=== PATIENT | male | born 1945 | race Hispanic/Latino ===

== ENCOUNTER 2018-01-19 13:07 | Inpatient (IN) | payer OTHER ==
[2018-01-19 14:13] LABS: Basophils # (Auto) 0.1 K/mm3 (0.0-0.1); Eosinophils # (Auto) 0.9 K/mm3 (0.0-0.4); Eosinophils % (Auto) 9.4 % (0.0-4.3); Hematocrit 41.8 % (35.5-45.6); Lymphocytes # (Auto) 1.8 K/mm3 (1.2-5.4); Lymphocytes % (Auto) 19.6 % (13.4-35.0); Mean Corpuscular HGB Conc 34 % (32-34); Mean Corpuscular Hemoglobin 28 pg (28-32); Mean Corpuscular Volume 85 fl (84-94); Monocytes # (Auto) 0.9 K/mm3 (0.0-0.8); Monocytes % (Auto) 10.1 % (0.0-7.3); Platelet Count 211 K/mm3 (140-440); Red Blood Count 4.92 M/mm3 (3.65-5.03); Red Cell Distribution Width 14.3 % (13.2-15.2)
[2018-01-19 14:23] LABS: INR 0.84 (0.87-1.13)
[2018-01-19 14:24] LABS: Partial Thromboplastin Time 31.9 Sec. (24.2-36.6)
[2018-01-19 14:28] LABS: Creatine Kinase MB 3.8 ng/mL (0.0-4.0)
[2018-01-19] MEDS ORDERED: NACL 0.9% 1000 ML 1,000 ML ONE (14:29)
[2018-01-19 14:30] LABS: Albumin 3.9 g/dL (3.9-5); Calcium 8.2 mg/dL (8.4-10.2)
[2018-01-19] MEDS ORDERED: NACL 0.9% 1000 ML 1,000 ML IV ONE (14:38)
--- NOTE | 2018-01-19 14:46 | XRay Report ---
AP CHEST: HISTORY: Tachycardia AP view of the chest demonstrates a normal mediastinal and cardiac contour with clear lungs and normal bony and soft tissue structures. IMPRESSION: Unremarkable AP chest.
--- NOTE | 2018-01-19 15:41 | Cat Scan Report ---
CT HEAD WITHOUT CONTRAST: HISTORY: Dizziness, recent stroke. TECHNIQUE: Sequential CT images without contrast. FINDINGS: Images obtained show bilateral prominence of the sulci and ventricles. There are no abnormal intra- or extra-axial blood or fluid collections. There are no focal masses or evidence of mass effect. The hodges white matter differentiation appears within normal limits. Regions of periventricular decreased attenuation are consistent with microangiopathic ischemic disease. 8mm chronic lacunar infarct is noted in the superior left basal ganglia. The posterior fossa structures including the fourth ventricle, cerebellum, and brainstem appear normal. IMPRESSION: Evidence of atrophy and microangiopathic ischemic disease. Chronic lacunar infarct in the superior left basal ganglia. No acute intracranial process noted.
--- NOTE | 2018-01-19 16:25 | Consultation ---
History of Present Illness Consult date: 01/19/18 Requesting physician: JOANNE RIVERA Consult reason: tachycardia History of present illness: The pt is a 72 YO male with a past medical history significant for CAD s/p PCI x 4 per pt report, AMI, HTN, HLP, DM, CVA in 07/2017, former tobacco use, former ETOH use. He is followed by the [facility]. He is previously unknown to our practice. Pt presented from cardiac rehab with c/o dizziness, palpitations, high HR and low BPs. Pt reports that he was walking on the treadmill at cardiac rehab when he noted the onset of his symptoms. He reports that he nearly fell off the treadmill because he was so dizzy. His HR was noted to be persistently elevated and BPs were noted to be low and thus he was referred to ED for further eval/management. Following arrival, 12-lead ECG showed apparent SVT with HR in 140s, BPs 90s/60s. Pt was given 6mg IV adenosine and converted to SR with HR in 80s. Pt denies any chest pain, SOB, n/v, diaphoresis or syncope. Pt does admit to some left hand and left arm tingling since the onset of his palpitations. Pt reports one additional episode of tachycardia last week at cardiac rehab when he was told his HR reached 180. 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 Echo done 07/2014 showed EF 50-55%, mild TR. Past History Past Medical History: acute [place], CAD, diabetes, hypertension, hyperlipidemia Social history: smoking (former), alcohol abuse (former) Medications and Allergies Allergies Allergy/AdvReac Type Severity Reaction Status Date / Time No Known Allergies Allergy Unverified 09/01/17 12:29 Home Medications Medication Instructions Recorded Confirmed Last Taken Type Aspirin [Aspirin EC] 81 mg PO DAILY 01/19/18 01/19/18 Unknown History Atorvastatin Calcium [Lipitor] 80 mg PO DAILY 01/19/18 01/19/18 Unknown History Carvedilol [Coreg] 6.25 mg PO BID 01/19/18 01/19/18 Unknown History Clopidogrel [Plavix] 75 mg PO QDAY 01/19/18 01/19/18 Unknown History Famotidine [Pepcid] 20 mg PO BID 01/19/18 01/19/18 Unknown History ISOSORBIDE MONOnitrate [Imdur ER] 60 mg PO QDAY 01/19/18 01/19/18 Unknown History Insulin Glargine [Lantus] 38 unit SUB-Q QHS 01/19/18 01/19/18 Unknown History Lisinopril [Zestril TAB] 40 mg PO QDAY 01/19/18 01/19/18 Unknown History Metformin HCl [Metformin HCl ER] 2,000 mg PO DAILY 01/19/18 01/19/18 Unknown History Quetiapine Fumarate [QUEtiapine 300 mg PO QDAY 01/19/18 01/19/18 Unknown History Fumarate] Ranitidine HCl [Zantac 150 MG TAB] 150 mg PO DAILY 01/19/18 01/19/18 Unknown History Saxagliptin HCl [Onglyza] 5 mg PO DAILY 01/19/18 01/19/18 Unknown History Spironolactone [Aldactone] 12.5 mg PO QDAY 01/19/18 01/19/18 Unknown History amLODIPine [Norvasc] 10 mg PO DAILY 01/19/18 01/19/18 Unknown History Review of Systems Constitutional: no weight loss, no weight gain, no fever, no chills, no sweats Ears, nose, mouth and throat: no ear pain, no nose pain, no sinus pressure, no sinus pain Cardiovascular: palpitations, rapid/irregular heart beat, lightheadedness, no chest pain, no orthopnea, no edema, no syncope, no shortness of breath, no dyspnea on exertion, no leg edema Respiratory: no cough, no shortness of breath, no dyspnea on exertion, no congestion, no wheezing, no pain on inspiration Gastrointestinal: no abdominal pain, no nausea, no vomiting, no diarrhea, no constipation, no change in bowel habits Genitourinary Male: no dysuria, no hematuria, no flank pain, no discharge, no urinary frequency, no urinary hesitancy Musculoskeletal: no neck stiffness, no neck pain, no low back pain, no shooting leg pain, no leg numbness/tingling, no redness of joints Integumentary: no rash, no pruritis, no redness, no sores, no wounds Neurological: no head injury, no paralysis, no weakness, no parathesias, no numbness, no tingling, no seizures, no syncope Psychiatric: no anxiety Endocrine: no cold intolerance, no heat intolerance Hematologic/Lymphatic: no easy bruising, no easy bleeding Allergic/Immunologic: no urticaria, no wheezing Physical Examination Vital Signs Temp Pulse Resp BP Pulse Ox 97.5 F L 144 H 22 99/62 96 01/19/18 13:32 01/19/18 13:32 01/19/18 13:32 01/19/18 13:32 01/19/18 13:32 General appearance: no acute distress HEENT: Positive: PERRL, Normocephaly, Mucus Membranes Moist Neck: Positive: neck supple, trachea midline Cardiac: Positive: S1/S2, Tachycardia Lungs: Positive: clear to auscultation Neuro: Positive: Grossly Intact Abdomen: Positive: Soft. Negative: Tender Skin: Positive: Clear. Negative: Rash, Wound Musculoskeletal: No Fluid Collection, No Pain, Normal Range of Motion Extremities: Absent: edema Results 01/19/18 13:41 01/19/18 13:41 Cardiac Enzymes 01/19/18 01/19/18 Range/Units 13:41 13:41 AST 23 (5-40) units/L CK-MB (CK-2) 3.8 (0.0-4.0) ng/mL Coagulation 01/19/18 Range/Units 13:41 PT 11.9 L (12.2-14.9) Sec. INR 0.84 L (0.87-1.13) APTT 31.9 (24.2-36.6) Sec. CBC 01/19/18 Range/Units 13:41 WBC 9.2 (4.5-11.0) K/mm3 RBC 4.92 (3.65-5.03) M/mm3 Hgb 14.0 (11.8-15.2) gm/dl Hct 41.8 (35.5-45.6) % Plt Count 211 (140-440) K/mm3 Lymph # 1.8 (1.2-5.4) K/mm3 [place] # 0.9 H (0.0-0.8) K/mm3 Eos # 0.9 H (0.0-0.4) K/mm3 Baso # 0.1 (0.0-0.1) K/mm3 Comprehensive Metabolic Panel 01/19/18 Range/Units 13:41 Sodium 135 L (137-145) mmol/L Potassium 4.2 (3.6-5.0) mmol/L Chloride 96.8 L (98-107) mmol/L Carbon Dioxide 23 (22-30) mmol/L BUN 12 (9-20) mg/dL Creatinine 1.2 (0.8-1.5) mg/dL Glucose 306 H (75-100) mg/dL Calcium 8.2 L (8.4-10.2) mg/dL AST 23 (5-40) units/L ALT 27 (7-56) units/L Alkaline Phosphatase 100 (35-129) units/L Total Protein 6.6 (6.3-8.2) g/dL Albumin 3.9 (3.9-5) g/dL - Imaging and Cardiology Echo: pending, report reviewed (07/2014 showed EF 50-55%, mild TR. ) EKG: report reviewed, image reviewed EKG interpretations - Telemetry EKG Rhythm: Sinus Rhythm Additional Comments: SVT Assessment and Plan Assessment: Transient SVT --> SR with 6mg IV adenosine CAD s/p PCI x 4 per pt report H/o HTN HLP DM H/o CVA 07/2017 per pt report Plan: Admit to telemetry per hospitalists. Resume home cardiac regimen. Will convert home coreg to lopressor for more adequate HR control. Obtain echo. Obtain serum Mg and thyroid profile. [facility] Assessment and plan reviewed with pt at bedside. The patient has been seen in conjunction with Dr. Michael who agrees with the assessment and plan of care.
--- NOTE | 2018-01-19 19:18 | Emergency Department Report ---
ED Dizziness HPI - General Chief Complaint: Dizziness Stated Complaint: TACHYCARDIA/DIZZINESS Time Seen by Provider: 01/19/18 14:23 Source: patient Mode of arrival: Ambulatory Limitations: No Limitations - History of Present Illness Initial Comments: 72-year-old male with past medical history of hypertension coronary artery disease high cholesterol was brought in for dizziness and tachycardia. Patient states he's been feeling dizzy and had elevated heart rate and was brought in for further evaluation and treatment patient is currently in no distress. Patient denies any nausea vomiting chest pain shortness of breath MD Complaint: dizziness -: Gradual Timing: gradual onset Description: "room spinning" History of Same: No History of Trauma: No Severity: mild Improves With: nothing Worsens With: nothing Associated Symptoms: denies other symptoms - Related Data Home Medications Medication Instructions Recorded Confirmed Last Taken Aspirin [Aspirin EC] 81 mg PO DAILY 01/19/18 01/19/18 Unknown Atorvastatin Calcium [Lipitor] 80 mg PO DAILY 01/19/18 01/19/18 Unknown Carvedilol [Coreg] 6.25 mg PO BID 01/19/18 01/19/18 Unknown Clopidogrel [Plavix] 75 mg PO QDAY 01/19/18 01/19/18 Unknown Famotidine [Pepcid] 20 mg PO BID 01/19/18 01/19/18 Unknown ISOSORBIDE MONOnitrate [Imdur ER] 60 mg PO QDAY 01/19/18 01/19/18 Unknown Insulin Glargine [Lantus] 38 unit SUB-Q QHS 01/19/18 01/19/18 Unknown Lisinopril [Zestril TAB] 40 mg PO QDAY 01/19/18 01/19/18 Unknown Metformin HCl [Metformin HCl ER] 2,000 mg PO DAILY 01/19/18 01/19/18 Unknown Quetiapine Fumarate [QUEtiapine 300 mg PO QDAY 01/19/18 01/19/18 Unknown Fumarate] Ranitidine HCl [Zantac 150 MG TAB] 150 mg PO DAILY 01/19/18 01/19/18 Unknown Saxagliptin HCl [Onglyza] 5 mg PO DAILY 01/19/18 01/19/18 Unknown Spironolactone [Aldactone] 12.5 mg PO QDAY 01/19/18 01/19/18 Unknown amLODIPine [Norvasc] 10 mg PO DAILY 01/19/18 01/19/18 Unknown Allergies Allergy/AdvReac Type Severity Reaction Status Date / Time No Known Allergies Allergy Unverified 09/01/17 12:29 ED Review of Systems ROS: Stated complaint: TACHYCARDIA/DIZZINESS Other details as noted in HPI Constitutional: denies: chills, fever Eyes: denies: eye pain, eye discharge, vision change ENT: denies: ear pain, throat pain Respiratory: denies: cough, shortness of breath, wheezing Cardiovascular: palpitations. denies: chest pain Endocrine: no symptoms reported Gastrointestinal: denies: abdominal pain, nausea, diarrhea Genitourinary: denies: urgency, dysuria Musculoskeletal: denies: back pain, joint swelling, arthralgia Skin: denies: rash, lesions Neurological: denies: headache, weakness, paresthesias Psychiatric: denies: anxiety, depression Hematological/Lymphatic: denies: easy bleeding, easy bruising ED Past Medical Hx - Past Medical History Hx Hypertension: Yes Hx CVA: Yes (affected speech) Hx Heart Attack/AMI: Yes Hx Diabetes: Yes - Surgical History Additional Surgical History: stents x4 - Social History Smoking Status: Former Smoker Substance Use Type: None - Medications Home Medications: Home Medications Medication Instructions Recorded Confirmed Last Taken Type Aspirin [Aspirin EC] 81 mg PO DAILY 01/19/18 01/19/18 Unknown History Atorvastatin Calcium [Lipitor] 80 mg PO DAILY 01/19/18 01/19/18 Unknown History Carvedilol [Coreg] 6.25 mg PO BID 01/19/18 01/19/18 Unknown History Clopidogrel [Plavix] 75 mg PO QDAY 01/19/18 01/19/18 Unknown History Famotidine [Pepcid] 20 mg PO BID 01/19/18 01/19/18 Unknown History ISOSORBIDE MONOnitrate [Imdur ER] 60 mg PO QDAY 01/19/18 01/19/18 Unknown History Insulin Glargine [Lantus] 38 unit SUB-Q QHS 01/19/18 01/19/18 Unknown History Lisinopril [Zestril TAB] 40 mg PO QDAY 01/19/18 01/19/18 Unknown History Metformin HCl [Metformin HCl ER] 2,000 mg PO DAILY 01/19/18 01/19/18 Unknown History Quetiapine Fumarate [QUEtiapine 300 mg PO QDAY 01/19/18 01/19/18 Unknown History Fumarate] Ranitidine HCl [Zantac 150 MG TAB] 150 mg PO DAILY 01/19/18 01/19/18 Unknown History Saxagliptin HCl [Onglyza] 5 mg PO DAILY 01/19/18 01/19/18 Unknown History Spironolactone [Aldactone] 12.5 mg PO QDAY 01/19/18 01/19/18 Unknown History amLODIPine [Norvasc] 10 mg PO DAILY 01/19/18 01/19/18 Unknown History ED Physical Exam - General Limitations: No Limitations General appearance: alert, in no apparent distress - Head Head exam: Present: atraumatic, normocephalic - Eye Eye exam: Present: normal appearance - ENT ENT exam: Present: mucous membranes moist - Neck Neck exam: Present: normal inspection - Respiratory Respiratory exam: Present: normal lung sounds bilaterally. Absent: respiratory distress - Cardiovascular Cardiovascular Exam: Present: regular rate, normal rhythm. Absent: systolic murmur, diastolic murmur, rubs, gallop - GI/Abdominal GI/Abdominal exam: Present: soft, normal bowel sounds - Rectal Rectal exam: Present: deferred - Extremities Exam Extremities exam: Present: normal inspection - Back Exam Back exam: Present: normal inspection - Neurological Exam Neurological exam: Present: alert, oriented X3 - Psychiatric Psychiatric exam: Present: normal affect, normal mood - Skin Skin exam: Present: warm, dry, intact, normal color. Absent: rash ED Course Vital Signs 01/19/18 13:32 Temperature 97.5 F L Pulse Rate 144 H Respiratory 22 Rate Blood Pressure 99/62 O2 Sat by Pulse 96 Oximetry ED Medical Decision Making - Lab Data Result diagrams: 01/19/18 13:41 01/19/18 13:41 - Medical Decision Making 72-year-old male with past medical history of hypertension, HLD, CAD came in with dizziness and tachycardia. At the time of arrival pt was given some fluids and then cardiology was consulted and pt was converted with adenosine 6mg. patient is currently in no acute distress. He denies any nausea vomiting chest pain shortness of breath. He denies any fever or chills. pt will be admitted to hospitalist for further evaluation, treatment Critical care attestation.: If time is entered above; I have spent that time in minutes in the direct care of this critically ill patient, excluding procedure time. ED Disposition Clinical Impression: Tachycardia, Dizziness, SVT (supraventricular tachycardia) Disposition: [id number] OP ADMIT IP TO THIS HOSP Is pt being admited?: Yes Does the pt Need Aspirin: No
[2018-01-19] MEDS ORDERED: NON-FORMULARY (Atorvastatin Calcium [Lipitor] 80 MG) PO SCH (20:45)
--- NOTE | 2018-01-19 20:45 | History and Physical Report ---
History of Present Illness Date of examination: 01/19/18 Date of admission: 01/19/18 15:39 Chief complaint: See dictated H/p in reports History of present illness: See dictated H/p in reports Past History Past Medical History: acute [place], CAD, diabetes, hypertension, hyperlipidemia Social history: smoking (former), alcohol abuse (former) Medications and Allergies Allergies Allergy/AdvReac Type Severity Reaction Status Date / Time No Known Allergies Allergy Unverified 09/01/17 12:29 Home Medications Medication Instructions Recorded Confirmed Last Taken Type Aspirin [Aspirin EC] 81 mg PO DAILY 01/19/18 01/19/18 Unknown History Atorvastatin Calcium [Lipitor] 80 mg PO DAILY 01/19/18 01/19/18 Unknown History Carvedilol [Coreg] 6.25 mg PO BID 01/19/18 01/19/18 Unknown History Clopidogrel [Plavix] 75 mg PO QDAY 01/19/18 01/19/18 Unknown History Famotidine [Pepcid] 20 mg PO BID 01/19/18 01/19/18 Unknown History ISOSORBIDE MONOnitrate [Imdur ER] 60 mg PO QDAY 01/19/18 01/19/18 Unknown History Insulin Glargine [Lantus] 38 unit SUB-Q QHS 01/19/18 01/19/18 Unknown History Lisinopril [Zestril TAB] 40 mg PO QDAY 01/19/18 01/19/18 Unknown History Metformin HCl [Metformin HCl ER] 2,000 mg PO DAILY 01/19/18 01/19/18 Unknown History Quetiapine Fumarate [QUEtiapine 300 mg PO QDAY 01/19/18 01/19/18 Unknown History Fumarate] Ranitidine HCl [Zantac 150 MG TAB] 150 mg PO DAILY 01/19/18 01/19/18 Unknown History Saxagliptin HCl [Onglyza] 5 mg PO DAILY 01/19/18 01/19/18 Unknown History Spironolactone [Aldactone] 12.5 mg PO QDAY 01/19/18 01/19/18 Unknown History amLODIPine [Norvasc] 10 mg PO DAILY 01/19/18 01/19/18 Unknown History Active Meds: Active Medications Aspirin (Halfprin Ec) 81 mg PO DAILY ANT Atorvastatin Calcium (Lipitor) 80 mg PO QHS ANT Clopidogrel Bisulfate (Plavix) 75 mg PO QDAY [facility] Isosorbide Mononitrate (Imdur) 60 mg PO QDAY [facility] Lisinopril (Zestril) 40 mg PO QDAY [facility] Metoprolol Tartrate (Lopressor) 25 mg PO BID [facility] Exam - Constitutional Vitals: Temp Pulse Resp BP Pulse Ox 97.5 F L 72 12 114/49 97 01/19/18 13:32 01/19/18 19:30 01/19/18 19:30 01/19/18 19:30 01/19/18 19:30 Results - Labs CBC & Chem 7: 01/19/18 13:41 01/19/18 13:41 Labs: Laboratory Last Values WBC 9.2 K/mm3 (4.5-11.0) 01/19/18 13:41 RBC 4.92 M/mm3 (3.65-5.03) 01/19/18 13:41 Hgb 14.0 gm/dl (11.8-15.2) 01/19/18 13:41 Hct 41.8 % (35.5-45.6) 01/19/18 13:41 MCV 85 fl (84-94) 01/19/18 13:41 MCH 28 pg (28-32) 01/19/18 13:41 MCHC 34 % (32-34) 01/19/18 13:41 RDW 14.3 % (13.2-15.2) 01/19/18 13:41 Plt Count 211 K/mm3 (140-440) 01/19/18 13:41 Lymph % (Auto) 19.6 % (13.4-35.0) 01/19/18 13:41 [place] % (Auto) 10.1 % (0.0-7.3) H 01/19/18 13:41 Eos % (Auto) 9.4 % (0.0-4.3) H 01/19/18 13:41 Baso % (Auto) 1.0 % (0.0-1.8) 01/19/18 13:41 Lymph # 1.8 K/mm3 (1.2-5.4) 01/19/18 13:41 [place] # 0.9 K/mm3 (0.0-0.8) H 01/19/18 13:41 Eos # 0.9 K/mm3 (0.0-0.4) H 01/19/18 13:41 Baso # 0.1 K/mm3 (0.0-0.1) 01/19/18 13:41 Seg Neutrophils % 59.9 % (40.0-70.0) 01/19/18 13:41 Seg Neutrophils # 5.5 K/mm3 (1.8-7.7) 01/19/18 13:41 PT 11.9 Sec. (12.2-14.9) L 01/19/18 13:41 INR 0.84 (0.87-1.13) L 01/19/18 13:41 APTT 31.9 Sec. (24.2-36.6) 01/19/18 13:41 Sodium 135 mmol/L (137-145) L 01/19/18 13:41 Potassium 4.2 mmol/L (3.6-5.0) 01/19/18 13:41 Chloride 96.8 mmol/L (98-107) L 01/19/18 13:41 Carbon Dioxide 23 mmol/L (22-30) 01/19/18 13:41 Anion Gap 19 mmol/L 01/19/18 13:41 BUN 12 mg/dL (9-20) 01/19/18 13:41 Creatinine 1.2 mg/dL (0.8-1.5) 01/19/18 13:41 Estimated GFR 60 ml/min 01/19/18 13:41 BUN/Creatinine Ratio 10 % 01/19/18 13:41 Glucose 306 mg/dL (75-100) H 01/19/18 13:41 Lactic Acid 2.00 mmol/L (0.7-2.0) 01/19/18 14:32 Calcium 8.2 mg/dL (8.4-10.2) L 01/19/18 13:41 Magnesium 1.50 mg/dL (1.7-2.3) L 01/19/18 16:38 Total Bilirubin 0.30 mg/dL (0.1-1.2) 01/19/18 13:41 AST 23 units/L (5-40) 01/19/18 13:41 ALT 27 units/L (7-56) 01/19/18 13:41 Alkaline Phosphatase 100 units/L (35-129) 01/19/18 13:41 Total Creatine Kinase 127 units/L (55-170) 01/19/18 13:41 CK-MB (CK-2) 3.8 ng/mL (0.0-4.0) 01/19/18 13:41 CK-MB (CK-2) Rel Index 2.9 (0-4) 01/19/18 13:41 Troponin T < 0.010 ng/mL (0.00-0.029) 01/19/18 13:41 Total Protein 6.6 g/dL (6.3-8.2) 01/19/18 13:41 Albumin 3.9 g/dL (3.9-5) 01/19/18 13:41 Albumin/Globulin Ratio 1.4 % 01/19/18 13:41 TSH 1.020 mlU/mL (0.270-4.200) 01/19/18 16:38 Free T4 0.64 ng/dL (0.76-1.46) L 01/19/18 16:38
[2018-01-19] MEDS ORDERED: MORPHINE IV PRN (20:47)
[2018-01-19] MEDS ORDERED: ZOFRAN IV PRN (20:47)
[2018-01-19] MEDS ORDERED: SODIUM CHLORIDE FLUSH SYRINGE 10 ML IV PRN (20:47)
[2018-01-19] MEDS ORDERED: TYLENOL PO PRN (20:47)
[2018-01-19] MEDS ORDERED: PERCOCET 5/325 PO PRN (20:47)
[2018-01-19] MEDS ORDERED: NON-FORMULARY (Saxagliptin Hcl [Onglyza] 5 MG) PO SCH (21:00)
[2018-01-19] MEDS ORDERED: NON-FORMULARY (Ranitidine Hcl [Zantac 150 Mg Tab] 150 MG) PO SCH (21:00)
[2018-01-19] MEDS ORDERED: NACL 0.9% 1000 ML 1,000 ML IV SCH (21:00)
[2018-01-19] MEDS ORDERED: NON-FORMULARY (Quetiapine Fumarate [Quetiapine Fumarate] 300 MG) PO SCH (21:00)
[2018-01-19] MEDS: NORVASC PO SCH (21:22)
[2018-01-19] MEDS ORDERED: PEPCID PO SCH ×2 (22:00)
[2018-01-19] MEDS: PEPCID PO SCH (22:00)
[2018-01-19] MEDS: COREG PO SCH (22:00)
[2018-01-19] MEDS: LOPRESSOR PO SCH (22:00)
[2018-01-19] MEDS ORDERED: LANTUS SUB-Q SCH (22:00)
[2018-01-19] MEDS: SODIUM CHLORIDE FLUSH SYRINGE 10 ML IV SCH (23:30)
[2018-01-20 07:40] LABS: Basophils # (Auto) 0.1 K/mm3 (0.0-0.1); Eosinophils # (Auto) 0.8 K/mm3 (0.0-0.4); Eosinophils % (Auto) 11.7 % (0.0-4.3); Hematocrit 40.1 % (35.5-45.6); Hemoglobin 13.5 gm/dl (11.8-15.2); Lymphocytes # (Auto) 2.1 K/mm3 (1.2-5.4); Lymphocytes % (Auto) 29.2 % (13.4-35.0); Mean Corpuscular HGB Conc 34 % (32-34); Mean Corpuscular Hemoglobin 28 pg (28-32); Mean Corpuscular Volume 84 fl (84-94); Monocytes # (Auto) 0.8 K/mm3 (0.0-0.8); Monocytes % (Auto) 11.5 % (0.0-7.3); Platelet Count 182 K/mm3 (140-440); Red Blood Count 4.75 M/mm3 (3.65-5.03); Red Cell Distribution Width 14.1 % (13.2-15.2)
[2018-01-20 08:08] LABS: Alanine Aminotransferase 25 units/L (7-56); Albumin 3.5 g/dL (3.9-5); BUN/Creatinine Ratio 11; Blood Urea Nitrogen 12 mg/dL (9-20); Calcium 8.4 mg/dL (8.4-10.2); Hemolysis Index 4
--- NOTE | 2018-01-20 08:13 | History and Physical Report ---
CHIEF COMPLAINT: Palpitations. HISTORY OF PRESENT ILLNESS: The patient is a 72-year-old male with past medical history significant for hypertension, coronary artery disease, cerebrovascular accident in 07/2017, who comes in for dizziness and palpitation and high heart rate and low blood pressure. The patient states that he was walking on treadmill at cardiac rehab when he noted onset of his symptoms. Apparently, he nearly fell off the treadmill because he was so dizzy. His heart rate and blood pressure were abnormal, heart rate was very fast and low blood pressure. He was sent to the ER for further evaluation. The patient had supraventricular tachycardia while in the ER . The patient also has a left arm tingling. No chest pain. No syncope. Presyncopal episode. PAST MEDICAL HISTORY: Significant for hypertension, coronary artery disease, insulin-dependent diabetes, bipolar/schizophrenia, gastroesophageal reflux disease. CURRENT MEDICATIONS: Lipitor 80 mg once a day, Coreg 6.25 b.i.d., Plavix 75 once a day, famotidine 20 mg twice a day, isosorbide mononitrate 60 mg once a day, Lantus 38 units at bedtime, lisinopril 40 mg p.o. daily, metformin 2000 mg p.o. daily, ranitidine 150 p.o. daily. PAST SURGICAL HISTORY: Stents x 4. SOCIAL HISTORY: Former smoker. FAMILY HISTORY: Significant for hypertension. REVIEW OF SYSTEMS: As mentioned in history of present illness: The patient had a near-syncopal episode and dizziness, lightheadedness and palpitations and low blood pressure. Otherwise, review of systems is essentially negative. Also, left arm tingling sensation. PHYSICAL EXAMINATION: GENERAL: Elderly male, cooperative during examination. VITAL SIGNS: Blood pressure was 124/62, temperature 98.3, pulse 71, respirations 18, sats 93%. HEENT: Unremarkable. Pupils equal and reactive. NECK: Supple, no lymphadenopathy, no thyromegaly. LUNGS: Clear to auscultation and percussion. Good air entry. CARDIOVASCULAR: S1, S2 heard. No gallop, no murmur, no rub. Apical impulse in left fifth intercostal space and midclavicular line. ABDOMEN: Soft and benign. No hepatosplenomegaly. No guarding, no rigidity. Hernial orifice normal. EXTREMITIES: Good pedal pulses. No pedal edema. SKIN: Normal. CENTRAL NERVOUS SYSTEM: Alert and oriented x 4, nonfocal exam. LABORATORY DATA: Significant for a normal CBC. Protime is 11.9. Electrolytes: Sodium is slightly low at 135, glucose is 306, BUN and creatinine 12 and 1.2, calcium is slightly low at 8.2. TSH is 1.020. Free T4 slightly low at 0.64. EKG shows SVT, converted to sinus rhythm with adenosine. EMERGENCY ROOM COURSE: The patient was given adenosine 6 mg and the patient converted to sinus rhythm. ASSESSMENT AND PLAN: 1. Supraventricular tachycardia, resolved with adenosine. Continue to monitor the patient on telemetry. 2. Hypertension. Continue Coreg and lisinopril. 3. Insulin-dependent diabetes. Continue insulin and metformin and Onglyza. 4. Hyperlipidemia. Continue atorvastatin 80 mg once a day. 5. Gastroesophageal reflux disease. Continue Zantac or Pepcid. 6. Coronary artery disease. Continue Plavix. 7. Deep venous thrombosis prophylaxis, heparin 5000 q.12h. In summary, the patient with supraventricular tachycardia, which has resolved. The patient has coronary artery disease, insulin-dependent diabetes. The patient to get echocardiogram for further evaluation. Maybe Lexiscan. We will defer to Cardiology. Cardiology on board. JOB# [id number] LETY/NTS
[2018-01-20] MEDS ORDERED: MAGNESIUM SULFATE 3 GM in NACL 0.9% 100 ML IV ONE (09:00)
[2018-01-20] MEDS ORDERED: ALDACTONE PO SCH (10:00)
[2018-01-20] MEDS ORDERED: TRADJENTA PO SCH (10:00)
[2018-01-20] MEDS ORDERED: PLAVIX PO SCH (10:00)
[2018-01-20] MEDS ORDERED: IMDUR PO SCH (10:00)
[2018-01-20] MEDS ORDERED: HALFPRIN EC PO SCH (10:00)
[2018-01-20] MEDS ORDERED: ZESTRIL PO SCH (10:00)
[2018-01-20 10:16] VITALS: BP 143/77
[2018-01-20] MEDS: COREG PO SCH (11:35)
[2018-01-20] MEDS: NORVASC PO SCH (11:36)
[2018-01-20] MEDS: PEPCID PO SCH (11:38)
[2018-01-20] MEDS: LOPRESSOR PO SCH (11:52)
[2018-01-20] MEDS: SODIUM CHLORIDE FLUSH SYRINGE 10 ML IV SCH (11:57)
[2018-01-20] MEDS ORDERED: PNEUMOVAX 23 IM ONE (12:00)
[2018-01-20] MEDS ORDERED: Fluarix Quad 2017-2018(36 MOS+ IM ONE (12:00)
--- NOTE | 2018-01-20 12:06 | Progress Note ---
Assessment and Plan Assessment: Transient SVT --> SR with 6mg IV adenosine CAD s/p PCI x 4 per pt report H/o HTN HLP DM Hypomag H/o CVA 07/2017 per pt report Plan: No arrhythmias noted overnight. Cont present cardiac regimen. Replete Mg. Await echo. Assessment and plan reviewed with pt at bedside. The patient has been seen in conjunction with Dr. Michael who agrees with the assessment and plan of care. Subjective Date of service: 01/20/18 Principal diagnosis: SVT Interval history: pt resting comfortably in bed, no current complaints. Tele reviewed - no arrhythmias noted overnight. Objective Last Vital Signs Temp 97.3 F L 01/20/18 08:54 Pulse 67 01/20/18 11:55 Resp 16 01/20/18 08:54 BP 143/77 01/20/18 11:55 Pulse Ox 96 01/20/18 08:54 - Physical Examination HEENT: Positive: PERRL, Normocephaly, Mucus Membranes Moist Neck: Positive: neck supple, trachea midline Cardiac: Positive: Reg Rate and Rhythm, S1/S2 Lungs: Positive: clear to auscultation Neuro: Positive: Grossly Intact Abdomen: Positive: Soft. Negative: Tender Skin: Positive: Clear. Negative: Rash, Wound Musculoskeletal: No Fluid Collection, No Pain, Normal Range of Motion Extremities: Absent: edema - Labs and Meds Cardiac Enzymes 01/19/18 01/19/18 01/20/18 Range/Units 13:41 13:41 07:18 AST 23 20 (5-40) units/L CK-MB (CK-2) 3.8 (0.0-4.0) ng/mL Coagulation 01/19/18 Range/Units 13:41 PT 11.9 L (12.2-14.9) Sec. INR 0.84 L (0.87-1.13) APTT 31.9 (24.2-36.6) Sec. CBC 01/19/18 01/20/18 Range/Units 13:41 07:18 WBC 9.2 7.1 (4.5-11.0) K/mm3 RBC 4.92 4.75 (3.65-5.03) M/mm3 Hgb 14.0 13.5 (11.8-15.2) gm/dl Hct 41.8 40.1 (35.5-45.6) % Plt Count 211 182 (140-440) K/mm3 Lymph # 1.8 2.1 (1.2-5.4) K/mm3 [place] # 0.9 H 0.8 (0.0-0.8) K/mm3 Eos # 0.9 H 0.8 H (0.0-0.4) K/mm3 Baso # 0.1 0.1 (0.0-0.1) K/mm3 Comprehensive Metabolic Panel 01/19/18 01/20/18 Range/Units 13:41 07:18 Sodium 135 L 143 D (137-145) mmol/L Potassium 4.2 4.0 (3.6-5.0) mmol/L Chloride 96.8 L 104.2 (98-107) mmol/L Carbon Dioxide 23 27 (22-30) mmol/L BUN 12 12 (9-20) mg/dL Creatinine 1.2 1.1 (0.8-1.5) mg/dL Glucose 306 H 135 H (75-100) mg/dL Calcium 8.2 L 8.4 (8.4-10.2) mg/dL AST 23 20 (5-40) units/L ALT 27 25 (7-56) units/L Alkaline Phosphatase 100 80 (35-129) units/L Total Protein 6.6 5.9 L (6.3-8.2) g/dL Albumin 3.9 3.5 L (3.9-5) g/dL - Imaging and Cardiology EKG: report reviewed, image reviewed Echo: pending, report reviewed (07/2014 showed EF 50-55%, mild TR. )
--- NOTE | 2018-01-20 16:28 | Discharge Summary ---
Providers - Providers Date of Admission: 01/19/18 15:39 Date of discharge: 01/20/18 Attending physician: VIRI PATTERSON 01/19/18 20:47 Consult to Physician [CONS] Routine Comment: Consulting Provider: CHRISSY RIDER Physician Instructions: Reason For Exam: SVT Primary care physician: [employer] Hospitalization Condition: Fair Disposition: DC-01 TO HOME OR SELFCARE Exam - Constitutional Vitals: Temp Pulse Resp BP Pulse Ox 97.3 F L 67 16 143/77 96 01/20/18 08:54 01/20/18 11:55 01/20/18 08:54 01/20/18 11:55 01/20/18 08:54 Plan Activity: advance as tolerated Diet: low fat, low cholesterol, low salt Additional Instructions: 1.Follow up with PCP in 3-5 days. 2.Follow up with lumber estimator in [place] in 3-5 days. Follow up with: PRIMARY CARE, [Primary Care Provider] - 7 Days Prescriptions: Metoprolol [Lopressor TAB] 25 mg PO BID #60 tablet
== END 2018-01-20 18:30 | disposition home or self-care (01) | DRG 310 ==
LOC: ED 13:07 → 4A 15:39
PROVIDERS: ADMIT Internal Medicine; ATTEND Internal Medicine
PROC: 3E0234Z Introduction of Serum, Toxoid and Vaccine into Muscle, Percutaneous Approach (ICD-10-PCS; principal; 2018-01-20)
DX: I47.1 Supraventricular tachycardia (principal); K21.9 Gastro-esophageal reflux disease without esophagitis; I25.10 Atherosclerotic heart disease of native coronary artery without angina pectoris; I10 Essential (primary) hypertension; E11.9 Type 2 diabetes mellitus without complications; F20.9 Schizophrenia, unspecified; E78.5 Hyperlipidemia, unspecified; E83.42 Hypomagnesemia; Z79.82 Long term (current) use of aspirin; Z79.899 Other long term (current) drug therapy; Z79.4 Long term (current) use of insulin; Z86.73 Personal history of transient ischemic attack (TIA), and cerebral infarction without residual deficits; I25.2 Old myocardial infarction; Z95.5 Presence of coronary angioplasty implant and graft; Z82.49 Family history of ischemic heart disease and other diseases of the circulatory system; Z23 Encounter for immunization
CPT/HCPCS: 36415; 70450; 71045; 80053; 82140; 82550; 82553; 82962; 83036; 83735; 84439; 84443; 84484; 85025; 85610; 85730; 90686; 90732; 93005; 93010; 93306; 96374; A9270-GY; J0153; J1815; J3475; J7030